=== PATIENT | female | born 1945 | race Caucasian/White ===

== ENCOUNTER → 2016-08-17 | Day surgery (SDC) | payer MEDICARE, OTHER ==
[~2016-08-17] VITALS: Ht 162.6 cm; Wt 75.5 kg
[~2016-08-17] MED LIST: 0.9% Sodium Chloride 1,000 ML IV SCH; CALC600T12 PO; CHOL200016 PO; ESTR42.52 VG; LORA10CA PO; MG T1TAB2 PO; PANT20TA2 PO; PEPCID COMPLETE; PRE20 PO; SIME125C76 PO; Sodium Chloride LOK Flush 10 mL Syringe IV PRN; fentaNYL-PF 50 mCg/mL 2 mL Inj IVPUSH PRN
[2016-08-17 14:21] VITALS: BP 143/82; PULSE 90; RESP 14; O2SAT 96
[2016-08-17 15:25] VITALS: BP 140/70; PULSE 74; RESP 14; O2SAT 97
[2016-08-17 15:40] VITALS: BP 127/67; PULSE 74; RESP 14; O2SAT 96
--- NOTE | 2016-08-18 00:33 | ENDO ---
[address] [address] ENDOSCOPY PROCEDURE PATIENT: RAFAEL RODRIGUEZ : 1945 MR#: [id number] ADMIT: 08/17/2016 JOB ID: [id number] PRIMARY PROVIDER: Gisselle Simpson MD PROCEDURE: Esophagogastroduodenoscopy with biopsies. 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 She was advised to undergo a surveillance endoscopy to ensure that this does not increase significantly in size. When first evaluated back in 2010 by [facility], it was described as a 6 x 4 mm lesion. Last endoscopy in April 2014, it was described as approximately 7-8 mm in greatest diameter. Repeat exam is undertaken today. EQUIPMENT: GIF-H190. SEDATION: 3 mg Versed, 75 mcg fentanyl. COMPLICATIONS: None identified. PROCEDURE INFORMATION: After the risks and benefits were explained, written and verbal informed consent was obtained. The patient was brought into the endoscopy suite and placed into the left lateral decubitus position. Sedation was achieved using the above-stated medications with the addition of oxygen via nasal cannula. The scope was introduced into the mouth through the bite block, and advanced to the second portion of the duodenum. The scope was slowly withdrawn to carefully examine the mucosa for any defects or lesions. Retroflexed views were accomplished in the stomach. The stomach was decompressed, the scope removed from the patient who tolerated the procedure well. FINDINGS: 1. Duodenum: No pathology identified from the bulb through to the second portion. 2. Stomach: No ulcers, no mass lesions. No outlet obstruction. Several benign diminutive gastric polyps were again identified, and a couple of these were removed for histopathologic identification. Retroflexed views of the LES again disclosed a small submucosal cardia lesion. Again, this was judged to be approximately 8 mm in greatest dimension. No overlying mucosal pathology. Photographs were taken. 3. Esophagus: The squamocolumnar junction correlated with the top of the gastric folds. The GEJ was at about 34 cm from the incisors. No acute erosive changes. No strictures. No mass lesions. Subtle sliding hiatal hernia noted. ENDOSCOPIC DIAGNOSES: 1. Subtle sliding hiatal hernia. 2. Diminutive gastric polyps. 3. Stable submucosal gastric cardia lesion. RECOMMENDATIONS: 1. Await histopathology. 2. Repeat examination in one year but by endoscopic ultrasound here locally with my colleague, Dr. Webster.
--- NOTE | 2016-08-19 11:25 | PATH ---
SURGICAL PATHOLOGY Attending Physician:Marcos Edgar CASE STATUS: Signed Out PATIENT NAME: RAFAEL RODRIGUEZ PID: [id number] : 1945 DATE COLLECTED:08/17/2016 00:00 SPECIMEN: Stomach, Polyp, Biopsy CLINICAL HISTORY: 1). GASTRIC POLYPS FINAL DIAGNOSIS: 1.GASTRIC POLYPS: FUNDIC GLAND POLYPS. Negative for Helicobacter organisms. Negative for intestinal metaplasia. Negative for dysplasia and malignancy. ICD10 code K31.7 GROSS DESCRIPTION: The specimen is received in one formalin filled container labeled with the patient's name, sublabeled "gastric polyps" and consists of 4 portions of tissue which aggregate to 0.3 x 0.3 x 0.3 CM. The specimen is entirely submitted in one cassette. 08/18/2016 [facility] MICRO DESCRIPTION: See diagnosis. ICD-9 CODES: CPT CODES: 1: 50140 Electronically Signed Out Mone Balbuena MD [facility] [address] [facility], [place] [address] Technical component performed at [facility], [address] [place] [address] Ave[address], [place], [address]
== END | disposition home or self-care (01) ==
LOC: END 00:30
PROVIDERS: ATTEND Internal Medicine Gastroenterology
DX: K31.89 Other diseases of stomach and duodenum (principal); K31.7 Polyp of stomach and duodenum; K44.9 Diaphragmatic hernia without obstruction or gangrene
CPT/HCPCS: 43239; 88305; G0500; J2250; J3010; J7030